=== PATIENT | male | born 1955 | race Caucasian/White ===

== ENCOUNTER 2022-04-21 07:14 | Outpatient (CLI) | payer MEDICARE, SELFPAY ==
[2022-04-21 19:25] LABS: Hematocrit 47.9 % (42.0-52.0); Mean Corpuscular HGB Conc 31.3 g/dl (32-36); Mean Corpuscular Hemoglobin 28.1 pg (26-34); Mean Corpuscular Volume 89.9 fl (80-100); Mean Platelet Volume 10.8 fl (7.4-10.4); Platelet Count Result 176 k/mm3 (150-375); Red Blood Count 5.33 M/mm3 (4.6-6.20); Red Cell Distribution Width 14.1 % (11.5-14.5); White Blood Count 6.4 K/mm3 (4.5-10.0)
[2022-04-21 19:29] LABS: Microalbumin Urine Random 48.3 mg/L (0-16.7)
[2022-04-21 19:32] LABS: Creatinine Urine 54.9 mg/dL
[2022-04-21 19:35] LABS: Hemoglobin A1C 9.1 % (<5.7)
[2022-04-21 19:43] LABS: Alanine Aminotransferase 25 U/L (6-50); Albumin Level 4.4 g/dL (3.5-5.1); Alkaline Phosphatase 76 U/L (38-126); Anion Gap 10 mmol/L (8-16); Aspartate Amino Transferase 22 U/L (17-59); Bilirubin,Total 0.3 mg/dL (0.2-1.3); Blood Urea Nitrogen 15 mg/dL (9-20); Calcium 9.5 mg/dL (8.4-10.2); Carbon Dioxide 23 mmol/L (22-30); Chloride 106 mmol/L (98-107); Cholesterol 144 mg/dL (0-200); Estimated Glomerular Filt Rate > 60; Glucose 281 mg/dL (65-110); HDL Direct 44 mg/dL; Potassium 4.6 mmol/L (3.4-5.0); Sodium 139 mmol/L (137-145); Triglycerides 84 mg/dL (<150)
[2022-04-21 19:53] LABS: LDL Cholesterol Direct 77 mg/dL
[2022-04-21 19:54] LABS: Thyroid Stimulating Hormone Reflex 0.982 uIU/mL (0.465-4.68)
[2022-04-21 20:30] LABS: Prostate Specific Antigen 0.7 ng/mL (< OR = 4.0)
[2022-04-25 18:55] LABS: Testosterone Free 32.2 pg/mL (35.0-155.0); Testosterone Total 162 ng/dL (250-1100)
== END 2022-04-21 07:15 | disposition home or self-care (01) ==
PROVIDERS: PCP Family Medicine; Visit Provider Family Medicine
DX: R68.82 Decreased libido (principal); E11.9 Type 2 diabetes mellitus without complications; Z12.5 Encounter for screening for malignant neoplasm of prostate; E03.9 Hypothyroidism, unspecified
CPT/HCPCS: 36415; 80053; 80061; 82043; 83036; 84153; 84402; 84403; 84443; 85027; G0103

== ENCOUNTER 2022-04-28 02:27 | Day surgery (SDC) | payer MEDICARE, SELFPAY ==
[2022-04-10 10:34] VITALS: BMI 40.8
--- NOTE | 2022-04-25 13:22 | PM.HPGS ---
History of Present Illness History of Present Illness Consent: Risks, benefits, and alternatives have been discussed and questions answered. Patient agrees to proceed with procedure. Chief complaint: family hx of colon ca Narrative: Kevin Whatley is a 66 year old male Referred for colon cancer screening. He has a family history of colon cancer. Review of Systems Review of Systems: All systems reviewed & are unremarkable except as noted in HPI and below PMFSH Past Medical History Medical History Diabetes mellitus Hyperlipidemia Hypertension Hypothyroidism Type 2 diabetes mellitus Family History Family History Father Cancer Depression Mother Cancer Diabetes mellitus Social History Social History Smoking status: Never smoker Alcohol intake: current Alcohol use details: rare occasional use Substance use: never Substance use type: does not use Living arrangements: with family Additional living arrangements comments: spouse and 2 daughters Additional occupation/education comments: Insurance sales Gender identity (if verbalized by the patient): Male Sexual Orientation (if Verbalized by the Patient): Straight or Heterosexual Spiritual care concerns: No Agree to blood products: Yes Meds Home Medications and Allergies Home Medications Medication Instructions Recorded Confirmed Type aspirin 81 mg tablet,delayed 81 mg PO DAILY 02/13/22 04/10/22 History release (Adult Low Dose Aspirin) dapagliflozin 10 mg tablet 10 mg PO DAILY 02/13/22 04/10/22 History (Farxiga) levothyroxine 150 mcg capsule 150 mcg PO DAILY 02/13/22 04/10/22 History lisinopril 5 mg tablet 5 mg PO DAILY 02/13/22 04/10/22 History meloxicam 15 mg tablet 15 mg PO DAILY 02/13/22 04/10/22 History metformin 1,000 mg tablet 1,000 mg PO BID 02/13/22 04/10/22 History rosuvastatin 20 mg tablet 20 mg PO DAILY 02/13/22 04/10/22 History tadalafil 10 mg tablet (Cialis) 10 mg PO DAILY PRN sexual activity 02/13/22 04/10/22 Rx #30 tabs tamsulosin 0.4 mg capsule 0.4 mg PO QHS #90 caps 03/08/22 04/10/22 Rx glimepiride 2 mg tablet 2 mg PO BID 04/10/22 04/10/22 History Allergies Allergy/AdvReac Type Severity Reaction Status Date / Time No Known Allergies Allergy Verified 04/28/22 06:59 Exam Resp: Auscultation: clear to auscultation bilaterally Cardio: Rate: regular rate Rhythm: regular rhythm GI: GI Palp: Yes Soft to palpation and No Tenderness to palpation present (GI) Assessment and Plan Assessment and plan (1) Colon cancer screening: Code(s): Z12.11 - Encounter for screening for malignant neoplasm of colon Status: Acute Assessment and Plan: Colonoscopy with possible biopsy or polypectomy or cautery or injection of substances.
--- NOTE | 2022-04-28 06:28 | P.PNAN_ITS ---
Anes - Initial Pre Proc Eval Procedure: Operation Date: 04/28/22 08:00 Proposed Procedures p Screening Colonoscopy - Kevin Campa MD Date/Time: 04/28/22 06:28 Surgeon: Kevin Campa MD Pre Op Diagnosis: family hx of colon ca Patient Data Age: 66 Gender: M Height: 1.7 m Weight: 118.1 kg Allergies Allergy/AdvReac Type Severity Reaction Status Date / Time No Known Allergies Allergy Verified 04/28/22 06:59 Home Medications Medication Instructions Recorded Confirmed Type aspirin 81 mg tablet,delayed 81 mg PO DAILY 02/13/22 04/10/22 History release (Adult Low Dose Aspirin) dapagliflozin 10 mg tablet 10 mg PO DAILY 02/13/22 04/10/22 History (Farxiga) levothyroxine 150 mcg capsule 150 mcg PO DAILY 02/13/22 04/10/22 History lisinopril 5 mg tablet 5 mg PO DAILY 02/13/22 04/10/22 History meloxicam 15 mg tablet 15 mg PO DAILY 02/13/22 04/10/22 History metformin 1,000 mg tablet 1,000 mg PO BID 02/13/22 04/10/22 History rosuvastatin 20 mg tablet 20 mg PO DAILY 02/13/22 04/10/22 History tadalafil 10 mg tablet (Cialis) 10 mg PO DAILY PRN sexual activity 02/13/22 04/10/22 Rx #30 tabs tamsulosin 0.4 mg capsule 0.4 mg PO QHS #90 caps 03/08/22 04/10/22 Rx glimepiride 2 mg tablet 2 mg PO BID 04/10/22 04/10/22 History Patient hx anesthesia problems: none Family hx anesthesia problems: none Results Review: All pre-operative results and documents have been reviewed as part of the pre- operative evaluation. [facility] Past Medical History Medical History Diabetes mellitus Hyperlipidemia Hypertension Hypothyroidism Type 2 diabetes mellitus Family History Family History Father Cancer Depression Mother Cancer Diabetes mellitus Social History Social History Smoking status: Never smoker Alcohol intake: current Alcohol use details: rare occasional use Substance use: never Substance use type: does not use Living arrangements: with family Additional living arrangements comments: spouse and 2 daughters Additional occupation/education comments: Insurance sales Gender identity (if verbalized by the patient): Male Sexual Orientation (if Verbalized by the Patient): Straight or Heterosexual Spiritual care concerns: No Agree to blood products: Yes Anes - Eval Final PreProcedure Day of Procedure 04/28/22 06:28 Patient weight: morbidly obese Heart: regular rate and rhythm Lungs: clear to auscultation Airway: Mallampati scale class II Neurological: alert and oriented Last oral intake: >/= 8 hours ASA classification: III Emergent: no Anesthetic plan: proceed Anesthesia type and monitoring: general GIVS and standard monitoring Results Review: All pre-operative results and documents have been reviewed as part of the pre- operative evaluation. Informed Consent: The patient's anesthetic plan and its attendant risks and benefits were discussed with the patient/family/POA. Questions were solicited and answers provided to the satisfaction of the patient/family/POA.
[2022-04-28 07:00] VITALS: BP 127/78; PULSE 75; RESP 20; TEMP 35.9; O2SAT 99
[2022-04-28] MEDS: LACTATED RINGERS 1,000 ML 150 ML IV CONT (07:22)
[2022-04-28 07:25] LABS: Glucose Point of Care 175 mg/dl (65-105)
[2022-04-28 09:08] VITALS: BP 124/76; PULSE 70; RESP 23; O2SAT 100
[2022-04-28 09:18] VITALS: BP 126/88; PULSE 69; RESP 21; O2SAT 100
[2022-04-28 09:28] VITALS: BP 137/84; PULSE 66; RESP 20; O2SAT 100
== END 2022-04-28 09:30 | disposition home or self-care (01) ==
PROVIDERS: PCP Family Medicine; Visit Provider Internal Medicine Gastroenterology
PROC: 0DJD8ZZ Inspection of Lower Intestinal Tract, Via Natural or Artificial Opening Endoscopic (ICD-10-PCS; CPT 45378; principal; 2022-04-28 08:00)
DX: Z12.11 Encounter for screening for malignant neoplasm of colon (principal); Z80.0 Family history of malignant neoplasm of digestive organs; E03.9 Hypothyroidism, unspecified; Z79.82 Long term (current) use of aspirin; Z79.84 Long term (current) use of oral hypoglycemic drugs; E11.9 Type 2 diabetes mellitus without complications; I10 Essential (primary) hypertension; E78.5 Hyperlipidemia, unspecified; E66.01 Morbid (severe) obesity due to excess calories; Z68.41 Body mass index [BMI] 40.0-44.9, adult
CPT/HCPCS: G0105; 82948; J2704; J7120

== ENCOUNTER 2022-04-30 08:34 | Outpatient (CLI) | payer MEDICARE, SELFPAY ==
[2022-05-05 12:32] LABS: Testosterone Total 199 ng/dL (250-1100)
== END 2022-04-30 08:35 | disposition home or self-care (01) ==
PROVIDERS: PCP Family Medicine; Visit Provider Family Medicine
DX: R79.89 Other specified abnormal findings of blood chemistry (principal)
CPT/HCPCS: 36415; 84402; 84403

== ENCOUNTER 2022-08-21 07:11 | Outpatient (CLI) | payer MEDICARE, SELFPAY ==
[2022-08-21 20:18] LABS: Thyroid Stimulating Hormone 0.411 uIU/mL (0.465-4.680)
[2022-08-24 15:09] LABS: Sex Hormone Binding Globulin 19 nmol/L (22-77)
[2022-08-25 15:11] LABS: FSH 1.3 mIU/mL (1.6-8.0); LH <0.2 mIU/mL (1.6-15.2); Prolactin 7.6 ng/mL (***)
[2022-08-26 12:47] LABS: Testosterone Free 77.6 pg/mL (35.0-155.0); Testosterone Total 402 ng/dL (250-1100)
[2022-08-31 02:26] LABS: Estrogen 173.4 pg/mL (60-190)
== END 2022-08-21 07:12 | disposition home or self-care (01) ==
LOC: ANHBWCLAB 07:13
PROVIDERS: PCP Family Medicine; Visit Provider Family Medicine
DX: R79.89 Other specified abnormal findings of blood chemistry (principal); R68.82 Decreased libido; E03.9 Hypothyroidism, unspecified
CPT/HCPCS: 36415; 82672; 82728; 83001; 83002; 84146; 84270; 84402; 84403; 84443

== ENCOUNTER 2022-10-07 08:00 | Outpatient (CLI) | payer MEDICARE, SELFPAY ==
[2022-10-07 19:24] LABS: Thyroid Stimulating Hormone 0.196 uIU/mL (0.465-4.680)
[2022-10-07 20:42] LABS: Hemoglobin A1C 7.3 % (<5.7)
[2022-10-11 14:19] LABS: Testosterone Free 89.1 pg/mL (35.0-155.0); Testosterone Total 543 ng/dL (250-1100)
[2022-10-14 15:12] LABS: Estrogen 249.8 pg/mL (60-190)
== END 2022-10-07 08:01 | disposition home or self-care (01) ==
PROVIDERS: PCP Family Medicine; Visit Provider Family Medicine
DX: E03.9 Hypothyroidism, unspecified (principal); I10 Essential (primary) hypertension; R79.89 Other specified abnormal findings of blood chemistry; E11.9 Type 2 diabetes mellitus without complications
CPT/HCPCS: 36415; 82672; 83036; 84402; 84403; 84443

== ENCOUNTER 2023-01-13 07:38 | Outpatient (CLI) | payer MEDICARE, SELFPAY ==
[2023-01-13 19:00] LABS: Hematocrit 50.8 % (42.0-52.0); Hemoglobin 16.3 g/dL (14.0-18.0); Mean Corpuscular HGB Conc 32.1 g/dl (32-36); Mean Corpuscular Hemoglobin 28.6 pg (26-34); Mean Corpuscular Volume 89.1 fl (80-100); Mean Platelet Volume 10.9 fl (7.4-10.4); Platelet Count Result 195 k/mm3 (150-375); Red Cell Distribution Width 14.5 % (11.5-14.5); White Blood Count 6.3 K/mm3 (4.5-10.0)
[2023-01-13 19:41] LABS: Hemoglobin A1C 7.5 % (<5.7)
[2023-01-13 20:47] LABS: Prostate Specific Antigen 0.9 ng/mL (< OR = 4.0); Thyroid Stimulating Hormone 0.454 uIU/mL (0.465-4.680)
[2023-01-13 21:09] LABS: Creatinine Urine 64.5 mg/dL; MALB Creatinine Ratio 159.7 mg/g (0-30)
[2023-01-23 12:40] LABS: Testosterone Free 39.6 pg/mL (35.0-155.0); Testosterone Total 226 ng/dL (250-1100)
== END 2023-01-13 07:39 | disposition home or self-care (01) ==
PROVIDERS: PCP Family Medicine; Visit Provider Family Medicine
DX: R79.89 Other specified abnormal findings of blood chemistry (principal); E03.9 Hypothyroidism, unspecified; E11.9 Type 2 diabetes mellitus without complications; Z12.5 Encounter for screening for malignant neoplasm of prostate
CPT/HCPCS: 36415; 82043; 83036; 84153; 84402; 84403; 84443; 85027; G0103

== ENCOUNTER 2023-04-16 07:42 | Outpatient (CLI) | payer MEDICARE, SELFPAY ==
[2023-04-16 19:08] LABS: Basophils Absolute Auto 0.1 K/mm3 (0.0-0.1); Basophils Percent Auto 0.6 % (0.2-1.2); Eosinophils Absolute Auto 0.3 K/mm3 (0-0.3); Eosinophils Percent Auto 4.3 % (0-4.4); Hematocrit 52.1 % (42.0-52.0); Hemoglobin 16.4 g/dL (14.0-18.0); Immature Granulocyte Absolute 0.02 K/mm3 (0.00-0.031); Immature Granulocyte Percent A 0.3 % (0-0.5); Lymphocytes Absolute Auto 1.78 K/mm3 (0.9-3.2); Lymphocytes Percent Auto 22.9 % (18.3-44.2); Mean Corpuscular HGB Conc 31.5 g/dl (32-36); Mean Corpuscular Hemoglobin 29.1 pg (26-34); Mean Corpuscular Volume 92.5 fl (80-100); Mean Platelet Volume 10.4 fl (7.4-10.4); Monocytes Absolute Auto 0.6 K/mm3 (0.1-0.6); Monocytes Percent Auto 8.1 % (2.6-8.5); Neutrophils Percent Auto 63.8 % (45.5-73.1); Platelet Count Result 182 k/mm3 (150-375); Red Blood Count 5.63 M/mm3 (4.6-6.20); Red Cell Distribution Width 13.8 % (11.5-14.5); White Blood Count 7.8 K/mm3 (4.5-10.0)
[2023-04-16 19:15] LABS: Alanine Aminotransferase 24 U/L (6-50); Albumin Level 4.7 g/dL (3.5-5.1); Alkaline Phosphatase 66 U/L (38-126); Anion Gap 10 mmol/L (8-16); Aspartate Amino Transferase 69 U/L (17-59); Bilirubin,Total 0.6 mg/dL (0.2-1.3); Blood Urea Nitrogen 13 mg/dL (9-20); Calcium 9.5 mg/dL (8.4-10.2); Carbon Dioxide 29 mmol/L (22-30); Chloride 102 mmol/L (98-107); Cholesterol 115 mg/dL (0-200); Estimated Glomerular Filt Rate > 60; Glucose 116 mg/dL (65-110); HDL Direct 38 mg/dL; Hemoglobin A1C 6.8 % (<5.7); Potassium 4.5 mmol/L (3.4-5.0); Sodium 141 mmol/L (137-145); Triglycerides 63 mg/dL (<150)
[2023-04-16 19:27] LABS: LDL Cholesterol Direct 57 mg/dL
[2023-04-16 19:43] LABS: Thyroid Stimulating Hormone 0.437 uIU/mL (0.465-4.680)
[2023-04-21 19:20] LABS: Testosterone Free 110.3 pg/mL (35.0-155.0); Testosterone Total 538 ng/dL (250-1100)
== END 2023-04-16 07:43 | disposition home or self-care (01) ==
PROVIDERS: PCP Family Medicine; Visit Provider Nurse Practitioner
DX: E03.9 Hypothyroidism, unspecified (principal); E78.5 Hyperlipidemia, unspecified; I10 Essential (primary) hypertension; E11.9 Type 2 diabetes mellitus without complications; R79.89 Other specified abnormal findings of blood chemistry
CPT/HCPCS: 36415; 80053; 80061; 83036; 84402; 84403; 84443; 85025

== ENCOUNTER 2023-05-11 11:23 | Outpatient (CLI) | payer MEDICARE, SELFPAY ==
--- NOTE | ~2023-05-11 | XR_ITS ---
EXAMINATION: XR abdomen/kub 1V DATE: 05/11/2023 11:40 INDICATION: Intra-abdominal and pelvic swelling. TECHNIQUE: A supine view of the abdomen on 2 radiographs was obtained. COMPARISON: None. FINDINGS: There are no dilated loops of bowel. There are surgical clips in right abdomen. IMPRESSION: 1. Normal bowel gas pattern. Reviewed, dictated and finalized at location A.
[2023-05-11 19:31] LABS: Basophils Absolute Auto 0.1 K/mm3 (0.0-0.1); Basophils Percent Auto 0.6 % (0.2-1.2); Eosinophils Absolute Auto 0.3 K/mm3 (0-0.3); Eosinophils Percent Auto 3.9 % (0-4.4); Hematocrit 50.6 % (42.0-52.0); Hemoglobin 16.6 g/dL (14.0-18.0); Immature Granulocyte Absolute 0.02 K/mm3 (0.00-0.031); Immature Granulocyte Percent A 0.2 % (0-0.5); Lymphocytes Absolute Auto 2.04 K/mm3 (0.9-3.2); Lymphocytes Percent Auto 24.4 % (18.3-44.2); Mean Corpuscular HGB Conc 32.8 g/dl (32-36); Mean Corpuscular Hemoglobin 29.6 pg (26-34); Mean Corpuscular Volume 90.2 fl (80-100); Mean Platelet Volume 10.8 fl (7.4-10.4); Monocytes Absolute Auto 0.7 K/mm3 (0.1-0.6); Monocytes Percent Auto 8.5 % (2.6-8.5); Neutrophils Absolute Auto 5.2 K/mm3 (1.3-6.7); Neutrophils Percent Auto 62.4 % (45.5-73.1); Platelet Count Result 187 k/mm3 (150-375); Red Blood Count 5.61 M/mm3 (4.6-6.20); Red Cell Distribution Width 13.2 % (11.5-14.5); White Blood Count 8.4 K/mm3 (4.5-10.0)
[2023-05-11 19:55] LABS: Alanine Aminotransferase 27 U/L (6-50); Albumin Level 4.2 g/dL (3.5-5.1); Alkaline Phosphatase 56 U/L (38-126); Amylase 95 U/L (30-110); Anion Gap 9 mmol/L (8-16); Aspartate Amino Transferase 38 U/L (17-59); Bilirubin,Total 0.4 mg/dL (0.2-1.3); Blood Urea Nitrogen 19 mg/dL (9-20); Calcium 9.7 mg/dL (8.4-10.2); Carbon Dioxide 27 mmol/L (22-30); Chloride 104 mmol/L (98-107); Estimated Glomerular Filt Rate > 60; Glucose 152 mg/dL (65-110); Lipase 216 U/L (23-300); Potassium 4.7 mmol/L (3.4-5.0); Sodium 140 mmol/L (137-145)
== END 2023-05-11 11:24 | disposition home or self-care (01) ==
PROVIDERS: PCP Family Medicine; Visit Provider Nurse Practitioner Adult Health
DX: R74.8 Abnormal levels of other serum enzymes (principal); R19.00 Intra-abdominal and pelvic swelling, mass and lump, unspecified site; R10.13 Epigastric pain
CPT/HCPCS: 36415; 74018; 80048; 80076; 82150; 83690; 85025

== ENCOUNTER 2023-05-22 12:16 | Outpatient (CLI) | payer MEDICARE, SELFPAY ==
--- NOTE | ~2023-05-22 | CT_ITS ---
CT of the Abdomen and Pelvis: Indication: Abdominal pain Technique: 2.5 mm axial scans were obtained through the abdomen and pelvis following intravenous adm inistration of 100 cc of Omnipaque 350. Dose reduction technique was used on this scan by utilizing a utomated exposure control and iterative reconstruction technique. The dose-length product (DLP) was 1 276.14 mGy-cm. Findings: Scans through the lung bases are unremarkable. The liver, spleen, pancreas, gallbladder, and adrenal glands are within normal limits. Small bilatera l nonobstructing renal stones measuring up to 3-4 mm in diameter. No evidence of aortic aneurysm. No lymphadenopathy. No bowel obstruction or bowel wall thickening. There is no evidence to suggest acute appendicitis. Images through the pelvis were performed. Urinary bladder unremarkable. Prostate gland and seminal ve sicles are unremarkable. No ascites. Impression: Small bilateral nonobstructing renal stones. No acute abnormality evident. Reviewed, dictated and finalized at [facility]. Impression: Small bilateral nonobstructing renal stones. No acute abnormality evident.
== END 2023-05-22 12:17 | disposition home or self-care (01) ==
PROVIDERS: PCP Family Medicine; Visit Provider Nurse Practitioner Adult Health
DX: R10.31 Right lower quadrant pain (principal); N20.0 Calculus of kidney
CPT/HCPCS: 74177; Q9967

== ENCOUNTER 2024-03-14 07:47 | Outpatient (CLI) | payer MEDICARE, SELFPAY ==
[2024-03-14 19:32] LABS: Hematocrit 51.1 % (42.0-52.0); Hemoglobin 16.4 g/dL (14.0-18.0); Mean Corpuscular HGB Conc 32.1 g/dl (32-36); Mean Corpuscular Hemoglobin 29.9 pg (26-34); Mean Corpuscular Volume 93.2 fl (80-100); Mean Platelet Volume 10.7 fl (7.4-10.4); Platelet Count Result 167 k/mm3 (150-375); Red Blood Count 5.48 M/mm3 (4.6-6.20); Red Cell Distribution Width 13.2 % (11.5-14.5); White Blood Count 7.4 K/mm3 (4.5-10.0)
[2024-03-14 19:48] LABS: Alanine Aminotransferase 25 U/L (6-50); Albumin Level 4.7 g/dL (3.5-5.1); Alkaline Phosphatase 63 U/L (38-126); Anion Gap 6 mmol/L (4-12); Aspartate Amino Transferase 51 U/L (17-59); Bilirubin,Total 0.6 mg/dL (0.2-1.3); Blood Urea Nitrogen 16 mg/dL (9-20); Calcium 9.9 mg/dL (8.4-10.2); Carbon Dioxide 28 mmol/L (22-30); Chloride 105 mmol/L (98-107); Estimated Glomerular Filt Rate > 60; Glucose 139 mg/dL (65-110); Potassium 4.1 mmol/L (3.4-5.0); Sodium 139 mmol/L (137-145)
[2024-03-14 19:54] LABS: Creatinine Urine 77.5 mg/dL
[2024-03-14 19:58] LABS: MALB Creatinine Ratio 134.8 mg/g (0-30); Microalbumin Urine Random 104.5 mg/L (0-16.7)
== END 2024-03-14 07:48 | disposition home or self-care (01) ==
PROVIDERS: PCP Family Medicine; Visit Provider Family Medicine
DX: E03.9 Hypothyroidism, unspecified (principal); E11.9 Type 2 diabetes mellitus without complications; E78.5 Hyperlipidemia, unspecified; I10 Essential (primary) hypertension; R68.82 Decreased libido; R79.89 Other specified abnormal findings of blood chemistry; Z00.00 Encounter for general adult medical examination without abnormal findings
CPT/HCPCS: 36415; 80053; 82043; 83036; 84443; 85027

== ENCOUNTER 2025-03-14 14:51 | Outpatient (CLI) | payer MEDICARE, SELFPAY ==
--- NOTE | ~2025-03-14 | XR_ITS ---
XR finger 5th LT min 2V 03/14/2025 15:13 Indication: Trigger finger. Procedure: 4 views left fifth finger Comparison: No prior studies for comparison. Findings: No fracture, subluxation or dislocation. No soft tissue abnormality. No foreign bodies. The re is anatomic alignment. Impression: 1: No acute bone or joint abnormality. Reviewed, dictated and finalized at location A. Impression: 1: No acute bone or joint abnormality.
== END 2025-03-14 14:52 | disposition home or self-care (01) ==
LOC: MICIMG 14:52
PROVIDERS: PCP Family Medicine; Visit Provider Family Medicine
DX: M65.30 Trigger finger, unspecified finger (principal)
CPT/HCPCS: 73140

== ENCOUNTER 2025-03-15 07:21 | Outpatient (CLI) | payer MEDICARE, SELFPAY ==
--- OUTSIDE RECORDS SUMMARY | 2025-03-15 07:24 | XMS_ITS | Encounter Summary ---
Author Organization [facility] Address 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
--- OUTSIDE RECORDS SUMMARY | 2025-03-15 07:24 | XMS_ITS | Encounter Summary ---
Author Organization [facility] Address [address] [place] [address] Care Team Providers Care Therapeutic Recreation Specialist Name Role Phone Unavailable Primary Care Provider Unavailabl e Encounter Details Date Type Department Care Team (Late st Contact Info) Description 07/15/2001 Outpatient [facility] [address] [place] [address] 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
--- OUTSIDE RECORDS SUMMARY | 2025-03-15 07:25 | XMS_ITS | Clinical Summary ---
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
--- OUTSIDE RECORDS SUMMARY | 2025-03-15 07:25 | XMS_ITS | Encounter Summary ---
Author Organization [facility] Address 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
--- OUTSIDE RECORDS SUMMARY | 2025-03-15 07:25 | XMS_ITS | Encounter Summary ---
Author Organization [facility] Address [address] [place] [address] Care Team Providers Care Automotive Manufacturer Name Role Phone Unavailable Primary Care Provider Unavailabl e Encounter Details Date Type Department Care Team (Late st Contact Info) Description 07/19/2001 Outpatient [facility] [address] [place] [address] 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
--- OUTSIDE RECORDS SUMMARY | 2025-03-15 07:25 | XMS_ITS | Encounter Summary ---
Author Organization [facility] Address 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
--- OUTSIDE RECORDS SUMMARY | 2025-03-15 07:25 | XMS_ITS | Clinical Summary ---
Author Organization [facility] [address] [place] [address] [place] [address] Care Team Providers Care Erecting Engineer Name Role Phone Manuel Gibson MD Primary Care Provider [phone] Allergies No known active allergies Medications lisinopril (PRINIVIL,ZESTR IL) 5 mg tablet take 1 tablet by oral route every day 0 0 01/10/2016 Active metFORMIN (GLUCOPHAGE) 500 mg tablet take 1 tablet by oral route 2 times every day with morning and evening meals 0 0 01/10/2016 Active glimepiride (AMARYL) 1 mg tablet take 1 tablet by oral route every day 0 0 01/10/2016 Active SITagliptin (JANUVIA) 25 mg tablet 25 mg. 0 0 01/23/2016 Active Farxiga 10 mg tablet 11/05/2021 Active levothyroxine (SYNTHROID) 150 mcg tablet 10/12/2021 Active meclizine (ANTIVERT) 25 mg tablet 09/09/2021 Active meloxicam (MOBIC) 15 mg tablet 09/01/2021 Active rosuvastatin (CRESTOR) 20 mg tablet 08/29/2021 Active Active Problems Problem Noted Date Diagnosed Date Eczema 01/23/2016 Overview (02/12/2017): Dermatitis Surgical History Surgery Date Site/Laterality Comments APPENDECTOMY Appendectomy Social History Tobacco Use Types Packs/Day Years Used Date Smoking Tobacco: Never Alcohol Use Standard Drinks/Week Comments No 0 (1 standard drink = 0.6 oz pur e alcohol) Personal Safety Answer Date Recorded Getting School Help Needed Not on file 12/29 Sex and Gender Information Value Date Recorded Sex Assigned at Not on file Legal Sex Male 9:33 AM RASPER MACHINE OPERATOR Gender Identity Not on file Sexual Orientation Not on file Obstetrics History Last Filed Vital Signs Vital Sign Reading Time Taken Comments Blood Pressure 126/84 11/20/2021 5:49 PM RASPER MACHINE OPERATOR Pulse 97 11/20/2021 5:49 PM RASPER MACHINE OPERATOR Temperature 36.7 C (98 F) 11/20/2021 5:49 PM RASPER MACHINE OPERATOR Respiratory Rate 18 11/20/2021 5:49 PM RASPER MACHINE OPERATOR Oxygen Saturation 96% 11/20/2021 5:49 PM RASPER MACHINE OPERATOR Inhaled Oxygen Concentration - - Weight 117.9 kg (260 lb) 11/20/2021 5:49 PM RASPER MACHINE OPERATOR Height 170.2 cm (5' 7 ) 11/20/2021 5:49 PM RASPER MACHINE OPERATOR Body Mass Index 40.72 11/20/2021 5:49 PM RASPER MACHINE OPERATOR Plan of Treatment Not on file Insurance [facility] MEDICARE ADVANTAGE Care Teams Erecting Engineer Relationship Specialty Start Date End Date Manuel Gibson MD PCP - General 01/10/16
--- OUTSIDE RECORDS SUMMARY | 2025-03-15 07:25 | XMS_ITS | Clinical Summary ---
Author Organization [facility] [employer] Address [address] [place] [address] Care Team Providers Care Orthodontic Band Maker Name Role Phone Manuel Gibson MD Primary Care Provider Unavaila ble Source Comments [facility] [employer],non-owned Affiliates and Associated Physician Practices is amultiple site organization consisting of ambulatory clinics and hospital sitesin [place], [place], [place] and [place]. This disclosure is being madepursuant to the Care Everywhere program and may not contain all information available regarding this patient. Last updated 18.[employer] Allergies No known active allergies Medications * Be aware that medications may not be up to date on this document. Alwaysverify current medications with the patient. benzonatate (TESSALON) 100 MG capsuleIndicati ons:Common cold virus Take 1 capsule by mouth 3 times daily as needed for Cough 30 capsule 11/10/2017 Active Social History Tobacco Use Types Packs/Day Years Used Date Smoking Tobacco: Never Smokeless Tobacco: Never Tobacco Cessation:Counseling Given: No Sex and Gender Information Value Date Recorded Sex Assigned at Not on file Legal Sex Male 8:38 AM WHEEL AND AXLE INSPECTOR Gender Identity Not on file Sexual Orientation Not on file Last Filed Vital Signs Vital Sign Reading Time Taken Comments Blood Pressure 118/88 11/10/2017 11:49 AM WHEEL AND AXLE INSPECTOR Pulse 85 11/10/2017 11:49 AM WHEEL AND AXLE INSPECTOR Temperature 37 C (98.6 F) 11/10/2017 11:49 AM WHEEL AND AXLE INSPECTOR Respiratory Rate 18 11/10/2017 11:49 AM WHEEL AND AXLE INSPECTOR Oxygen Saturation 98% 11/10/2017 11:49 AM WHEEL AND AXLE INSPECTOR Inhaled Oxygen Concentration - - Weight 119.7 kg (264 lb) 11/10/2017 11:49 AM WHEEL AND AXLE INSPECTOR Height 170.2 cm (5' 7 ) 11/10/2017 11:49 AM WHEEL AND AXLE INSPECTOR Body Mass Index 41.35 11/10/2017 11:49 AM WHEEL AND AXLE INSPECTOR Plan of Treatment Health Maintenance Due Date Last Done Comments COLOGUARD (AGES 45-75) - COL ON CA SCREENING 1956 COLON MONITORING 1956 COLONOSCOPY - COLON CA SCREENING 1956 CT COLONOGRAPHY - COLON CA SCREENING 1956 Colorectal Cancer Screening 1956 FIT - COLON CA SCREENING 1956 FLEX SIG - COLON CA SCREENING 1956 LIPID TESTING 1956 HEPATITIS C SCREENING 07/02/1974 DTAP/TDAP/TD VACCINES (1 - Tdap) 1975 PNEUMOCOCCAL VACCINE 50+ (1 of 1 - PCV) 2006 ZOSTER VACCINE (1 of 2) 2006 SCREENING FOR DIABETES 11/10/2017 COVID-19 VACCINE (1 - 2023-2 5 season) 2024 DEPRESSION SCREENING 11/09/2024 INFLUENZA VACCINE (Season Ended) 2025 Respiratory Syncytial Virus (RSV) Vaccine Pt: or over 60 yrs (1 - 1-dose 75+ series) 2031 HEPATITIS B VACCINE Aged Out No longe r eligible based on patient's age to complete this topic HIB VACCINE Aged Out No longer eligi ble based on patient's age to complete this topic HPV VACCINE Aged Out No longer eligi ble based on patient's age to complete this topic MENINGOCOCCAL (Group B) VACC INE SHARED DECISION-MAKING Aged Out No longer eligibl e based on patient's age to complete this topic MENINGOCOCCAL GROUPS A/C/Y/W VACCINE Aged Out No longer eligible b ased on patient's age to complete this topic Insurance [employer] Care Teams Orthodontic Band Maker Relationship Specialty Start Date End Date Manuel Gibson MD PCP - General Internal Medicine 11/10/17
--- OUTSIDE RECORDS SUMMARY | 2025-03-15 07:25 | XMS_ITS | Encounter Summary ---
Author Organization [facility] Address [address] [place] [address] Care Team Providers Care Pre Sales Technical Engineer Name Role Phone Unavailable Primary Care Provider Unavailabl e Encounter Details Date Type Department Care Team (Late st Contact Info) Description 09/08/2001 Outpatient [facility] [address] [place] [address] 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
--- OUTSIDE RECORDS SUMMARY | 2025-03-15 07:25 | XMS_ITS | Referral Summary ---
Author Organization [facility] [address] [place] [address] [address] [place] [address] Care Team Providers Care Pressing Machine Operator Name Role Phone Manuel Gibson MD Primary Care Provider [phone] Allergies No known active allergies Medications lisinopril [...] Diagnosed Date Eczema 01/23/2016 Overview (02/12/2017): Dermatitis Social History Tobacco Use Types Packs/Day Years Used Date Smoking Tobacco: Never Alcohol Use Standard Drinks/Week Comments No 0 (1 standard drink = 0.6 oz pur e alcohol) Personal Safety Answer Date Recorded Getting School Help Needed Not on file 12/29 Sex and Gender Information Value Date Recorded Sex Assigned at Not on file Legal Sex Male 9:33 AM STENCIL CUTTER MACHINE Gender Identity Not on file Sexual Orientation Not on file Last Filed Vital Signs Vital Sign Reading Time Taken Comments Blood Pressure 126/84 11/20/2021 5:49 PM STENCIL CUTTER MACHINE Pulse 97 11/20/2021 5:49 PM STENCIL CUTTER MACHINE Temperature 36.7 C (98 F) 11/20/2021 5:49 PM STENCIL CUTTER MACHINE Respiratory Rate 18 11/20/2021 5:49 PM STENCIL CUTTER MACHINE Oxygen Saturation 96% 11/20/2021 5:49 PM STENCIL CUTTER MACHINE Inhaled Oxygen Concentration - - Weight 117.9 kg (260 lb) 11/20/2021 5:49 PM STENCIL CUTTER MACHINE Height 170.2 cm (5' 7 ) 11/20/2021 5:49 PM STENCIL CUTTER MACHINE Body Mass Index 40.72 11/20/2021 5:49 PM STENCIL CUTTER MACHINE Plan of Treatment Not on file Insurance [facility] MEDICARE ADVANTAGE [facility] Address: [address] [address] Care Teams Pressing Machine Operator Relationship Specialty Start Date End Date Manuel Gibson MD PCP - General 01/10/16
[2025-03-15 19:29] LABS: Hematocrit 49.5 % (42.0-52.0); Hemoglobin 15.7 g/dL (14.0-18.0); Mean Corpuscular HGB Conc 31.7 g/dl (32-36); Mean Corpuscular Hemoglobin 29.7 pg (26-34); Mean Corpuscular Volume 93.6 fl (80-100); Mean Platelet Volume 10.6 fl (7.4-10.4); Platelet Count Result 177 k/mm3 (150-375); Red Blood Count 5.29 M/mm3 (4.6-6.20); Red Cell Distribution Width 14.6 % (11.5-14.5); White Blood Count 6.2 K/mm3 (4.5-10.0)
[2025-03-15 19:52] LABS: Alanine Aminotransferase 24 U/L (6-50); Albumin Level 4.3 g/dL (3.5-5.1); Alkaline Phosphatase 62 U/L (38-126); Anion Gap 12 mmol/L (4-12); Aspartate Amino Transferase 45 U/L (17-59); Bilirubin,Total 0.5 mg/dL (0.2-1.3); Blood Urea Nitrogen 15 mg/dL (9-20); Calcium 9.5 mg/dL (8.4-10.2); Carbon Dioxide 24 mmol/L (22-30); Chloride 105 mmol/L (98-107); Estimated Glomerular Filt Rate > 60; Glucose 191 mg/dL (65-110); Potassium 4.2 mmol/L (3.4-5.0); Sodium 141 mmol/L (137-145)
[2025-03-15 20:25] LABS: Prostate Specific Antigen 0.9 ng/mL (< OR = 4.0)
[2025-03-15 20:53] LABS: Hemoglobin A1C 7.5 % (<5.7)
[2025-03-19 11:47] LABS: Testosterone Total 442 ng/dL (250-1100)
== END 2025-03-15 07:22 | disposition home or self-care (01) ==
PROVIDERS: PCP Family Medicine; Visit Provider Family Medicine
DX: E03.9 Hypothyroidism, unspecified (principal); R79.89 Other specified abnormal findings of blood chemistry; I10 Essential (primary) hypertension; R68.82 Decreased libido; E11.9 Type 2 diabetes mellitus without complications; Z12.5 Encounter for screening for malignant neoplasm of prostate
CPT/HCPCS: 36415; 80053; 83036; 84153; 84403; 84443; 85027; G0103